=== PATIENT | female | born 1955 | race Caucasian/White ===

== ENCOUNTER 2020-04-02 10:07 | Emergency (ER) | payer BC ==
[~2020-04-02] VITALS: Ht 170.2 cm; Wt 119.8 kg
[2020-04-02] MEDS ORDERED: dexamethasone sod phosphate 10mg/ml inj IV STA (10:25)
[2020-04-02] MEDS ORDERED: proCHLORperazine 10 MG/2 ml inj IV ONE (10:25)
[2020-04-02] MEDS ORDERED: normal saline 1000ML IV soln IVB ONE (10:25)
--- NOTE | 2020-04-02 10:27 | NUR ---
JETT OSORIO AT BEDSIDE.
[2020-04-02 13:24] VITALS: BP 201/115
== END 2020-04-02 13:24 | disposition home or self-care (01) ==
LOC: ER 10:07
DX: G43.909 Migraine, unspecified, not intractable, without status migrainosus (principal); R11.0 Nausea; Z88.2 Allergy status to sulfonamides
CPT/HCPCS: 96374; 96375; 99284; J0780; J1100; J7030